=== PATIENT | male | born 1950 | race Hispanic/Latino ===

== ENCOUNTER 2019-12-27 18:38 | Inpatient (IN) | payer MEDICARE, OTHER ==
[~2019-12-27] VITALS: Ht 170.2 cm; Wt 105.4 kg
--- OUTSIDE RECORDS SUMMARY | 2019-12-27 18:41 | XMS REPORT ---
Author Author [facility] Organization [facility] Address Unknown Phone Unavailable Care Team Providers Care Senior Contracts Administrator Name Role Phone Unavailable Unavailable Payers Payer Name Policy Type Policy Number Effective Date Expiration D ate Problems This patient has no known problems. Allergies, Adverse Reactions, Alerts This patient has no known allergies or adverse reactions. Medications This patient has no known medications. Encounters Start Date/Time End Date/Time Encounter Type Admission Type [facility] Care Department Encounter ID 2019-07-10 12:41:00 2019-07-10 12:41:00 Emergency E [id number] Results Test Description Test Time Test Comments Text Results Atomic Results Result Comments - US HEAD AND NECK 2019-04-03 12:22:00 Name: CLAUDIO PAGE [facility] : 1950 Age/S: 68 / M [address] [place] [address] Unit #: [id number] Loc: [place] [address] Phys: Lorna Roldan MD Acct: [id number] Dis Date: Status: REG CLI PHONE #: [phone] Exam Date: 04/03/2019 0939 FAX #: [phone] Reason: E21.3, HYPERPARATHYROIDISM, UNSPECIFIED. EXAMS: CPT CODE: [id number] US HEAD AND NECK 91748 PROCEDURE: THYROID ULTRASOUND INDICATION: Hyperparathyroidism COMPARISON: None. TECHNIQUE: Sonographic evaluation of the thyroid gland is performed using high resolution B-mode and supplemental Doppler imaging. FINDINGS: The right lobe measures 6.1 x 1.9 x 1.7 cm The left lobe measures 5.3 x 1.9 x 2.0 cm The isthmus is normal. There is diffuse heterogeneity. No increased vascularity is noted. Inferomedial right nodule measures 6 mm. Inferior right nodule measures 5 mm. Mid left thyroid nodule measures 1.9 cm. Inferior left thyroid cystic nodule measures 8 mm. Largest Nodule: - Size: 1.9 cm - Location: Mid left - Composition: 2 - Echogenicity: 1 - Shape: Wider than tall - Margin: Ill-defined - Echogenic foci?: Microcalcifications TI-RADS Category: 4, moderately suspicious. FNA recommended. IMPRESSION: 1. Moderately suspicious dominant left thyroid nodule measuring 1.9 cm. FNA recommended. 2. Other smaller subcentimeter bilateral nodules SL: [id number] at 1222 Reported and signed by: Philip Eller M.D. PAGE 1 Signed Report (CONTINUED) Name: CLAUDIO MORTON [facility] : 1950 Age/S: 68 / M [address] [place] [address] Blvd Unit #: [id number] Loc: [place] [address] Phys: Lorna Roldan MD Acct: [id number] Dis Date: Status: REG CLI PHONE #: [phone] Exam Date: 04/03/2019 0939 FAX #: [phone] Reason: E21.3, HYPERPARATHYROIDISM, UNSPECIFIED. EXAMS: CPT CODE: [id number] US HEAD AND NECK 02497 <Continued> CC: Lorna Roldan MD; García John MD Technologist: Contreras Barry RDMS (AB) (OB) Trnscb Date/Time: 04/03/2019 (1222) [email or web address] Orig Print D/T: S: 04/03/2019 (9545) Probe: PAGE 2 Signed Report
[2019-12-27] MEDS ORDERED: ASPIRIN 81 MG CHEW TAB PO ONE ×2 (18:45→19:00)
[2019-12-27] MEDS ORDERED: ENOXAPARIN SODIUM INJ 100 MG/ML SYR SC STA (18:57)
[2019-12-27] MEDS: NITROGLYCERIN 0.4 MG SUBL SL PRN ×2 (19:00→19:23)
[2019-12-27] MEDS ORDERED: NITROGLYCERIN 0.4 MG SUBL ONE (19:00)
--- NOTE | 2019-12-27 19:04 | NUR ---
cp resolved after 1 dose nitro sl. md informed. ordered to hold additional doses of nitro sl, 2 inches nitropaste ordered.
[2019-12-27] MEDS ORDERED: NITROGLYCERIN 2% OINT 1 GM PKT TOP STA (19:05)
[2019-12-27 19:11] LABS: BASOPHILS % 0.1 % (0.0-1.0); EOSINOPHILS # (AUTO) 0.2 (0.0-0.4); EOSINOPHILS % 2.1 % (0.0-6.0); HEMATOCRIT 33.9 % (38.2-49.6); HEMOGLOBIN 11.1 g/dL (14.0-18.0); LYMPHOCYTES # (AUTO) 1.3 (1.0-3.2); LYMPHOCYTES % 17.3 % (18.0-39.1); MEAN CORPUSCULAR HEMOGLOBIN 33.6 pg (28-32); MEAN CORPUSCULAR HGB CONC 32.7 g/dL (31-35); MEAN CORPUSCULAR VOLUME 102.7 fL (81-99); MONOCYTES # (AUTO) 0.9 (0.2-0.8); MONOCYTES % 12.1 % (4.4-11.3); NEUTROPHILS # (AUTO) 4.9 (2.1-6.9); PLATELET COUNT 178 x10e3/uL (140-360); RED CELL DISTRIBUTION WIDTH 13.5 % (11.7-14.4)
[2019-12-27] MEDS ORDERED: NITROGLYCERIN 2% OINT 1 GM PKT ONE (19:12)
[2019-12-27] MEDS ORDERED: ENOXAPARIN SOD INJ 120 MG/0.8 ML SYR SC ONE (19:12)
[2019-12-27 19:15] LABS: INR 0.89; PROTHROMBIN TIME 12.6 seconds (11.9-14.5)
[2019-12-27 19:16] LABS: PARTIAL THROMBOPLASTIN TIME 29.6 seconds (23.8-35.5)
--- NOTE | 2019-12-27 19:23 | NUR ---
pt states htat chest pain returning rated 8/10. md informed. 2nd dose of nitro sl ordered. administered at this time.
[2019-12-27 19:25] LABS: ALANINE AMINOTRANSFERASE 9 IU/L (0-55); ALBUMIN 3.9 g/dL (3.5-5.0); ALKALINE PHOSPHATASE 70 IU/L (40-150); ANION GAP 21.8 mmol/L (8-16); BLOOD UREA NITROGEN 64 mg/dL (7-26); BUN/CREATININE RATIO 7 (6-25); CALCIUM 9.9 mg/dL (8.4-10.2); CARBON DIOXIDE 24 mmol/L (22-29); CHLORIDE 101 mmol/L (98-107); CREATINE KINASE 170 IU/L (30-200); CREATININE, SERUM 8.86 mg/dL (0.72-1.25); EST GLOMERULAR FILTRATION RATE 6 ML/MIN (60-); GLUCOSE 238 mg/dL (74-118); POTASSIUM 4.8 mmol/L (3.5-5.1); SODIUM 142 mmol/L (136-145)
--- NOTE | 2019-12-27 19:28 | NUR ---
pt states that chest pain resolved at this time. informed.
--- NOTE | 2019-12-27 19:38 | Diagnostic Imaging Report ---
EXAMINATION: CHEST SINGLE (PORTABLE) INDICATION: Chest pain COMPARISON: None FINDINGS: AP view TUBES and LINES: None. LUNGS: Lungs are well inflated. Lungs are clear. There is no evidence of pneumonia or pulmonary edema. PLEURA: No pleural effusion or pneumothorax. HEART AND MEDIASTINUM: The heart is moderately enlarged. The pulmonary vasculature is unremarkable. BONES AND SOFT TISSUES: No acute osseous lesion. Sternotomy wires. UPPER ABDOMEN: No free air under the diaphragm. IMPRESSION: Moderate cardiomegaly. No acute thoracic abnormality. Signed by: Philip Pacheco MD on 12/27/2019 7:34 PM
[2019-12-27 19:45] LABS: THYROID STIMULATING HORMONE 0.728 uIU/mL (0.350-4.940)
[2019-12-27] MEDS ORDERED: METOPROLOL TARTRATE INJ 1 MG/ML VIAL IV NR (20:00)
[2019-12-27] MEDS ORDERED: CLOPIDOGREL BISULFATE 75 MG TAB PO STA (20:02)
--- NOTE | 2019-12-27 21:15 | NUR ---
pt complaining of chest pain returning. er dr notified. dr jose luis osuna called per md request. dr osuna spoke to dr vasquez. group home supervisor called to activate clinical laboratory director per er md request.
[2019-12-27] MEDS: ONDANSETRON HCL INJ 2MG/ML 2ML 2 MG/ML VIAL IV PRN (21:25)
[2019-12-27] MEDS: SIMVASTATIN 40 MG TAB PO SCH (21:29)
[2019-12-27] MEDS: MORPHINE SULFATE 2 MG/ML SYR 1ML IV PRN (21:35)
--- NOTE | 2019-12-27 21:35 | NUR ---
bilateral groins shaved c electric neto. pt instructed to remain npo for heart cath.
--- NOTE | 2019-12-27 21:41 | NUR ---
CONSENT FOR CARDIAC CATHERIZATION REVIEWED, ALL AGREED UPON, AND SIGNED BY PATIENT
[2019-12-27] MEDS: FAMOTIDINE 20 MG/2 ML VIAL IV SCH (21:49)
--- NOTE | 2019-12-27 21:58 | NUR ---
DR. Jaquelin JOINER AT PTS BEDSIDE
[2019-12-27] MEDS: METOPROLOL TARTRATE 25 MG TAB PO SCH (22:01)
[2019-12-27] MEDS ORDERED: HEPARIN SOD/SOD CHLORIDE 1,000 ML ONE ×2 (22:12→22:17)
[2019-12-27 22:13] LABS: CREATINE KINASE 152 IU/L (30-200)
[2019-12-27] MEDS ORDERED: MIDAZOLAM HCL 2 MG/2 ML VIAL ONE (22:15)
[2019-12-27] MEDS ORDERED: HEPARIN SOD (PORCINE) 1000 UNIT/ML 30ML ONE (22:15)
[2019-12-27] MEDS ORDERED: FENTANYL CITRATE/PF 100MCG/2 ML INJ ONE (22:16)
[2019-12-27] MEDS ORDERED: IOPAMIDOL 370 MG/ML 200 ML INFUS..BTL INJ ONE (22:17)
[2019-12-27] MEDS ORDERED: LIDOCAINE HCL 2% LOCAL 20 ML VIAL ONE (22:17)
[2019-12-27] MEDS ORDERED: SODIUM CHLORIDE 0.9% 1000ML 1,000 ML ONE (22:25)
[2019-12-27] MEDS ORDERED: NITROGLYCERIN/D5W 200 MCG/ML 0 ML ONE (22:25)
[2019-12-27] MEDS ORDERED: ONDANSETRON HCL INJ 2MG/ML 2ML 2 MG/ML VIAL IV PRN (23:15)
[2019-12-27] MEDS ORDERED: HYDROCODONE/APAP 5MG-325MG TAB PO PRN (23:15)
[2019-12-27 23:45] VITALS: BP_SYST 169; BP_SYST 170; BP_DIAS 65
--- NOTE | 2019-12-27 23:45 | NUR ---
RECEIVED FROM ENSEMBLE MEMBER, AWAKE AND ALERT, NO C/O DISCOMFORT AT THIS TIME
[2019-12-28] VITALS (24 sets, daily range): BP systolic 114–220; BP diastolic 45–87
[2019-12-28] MEDS: HYDRALAZINE HCL 20 MG/ML VIAL ONE ×2 (00:21→02:18)
[2019-12-28] MEDS: MORPHINE SULFATE 2 MG/ML SYR 1ML IV PRN (00:22)
[2019-12-28] MEDS ORDERED: HYDRALAZINE HCL 20 MG/ML VIAL ONE (02:16)
--- NOTE | 2019-12-28 03:00 | Consultation ---
DATE OF CONSULTATION: 12/27/2019 Cardiology Consultation REASON FOR CONSULTATION: Chest pain, dynamic EKG changes with high-risk ACS. HISTORY OF PRESENT ILLNESS: Mr. Valentine is a 69-year-old gentleman with past medical history of hypertension, hypercholesteremia, coronary disease with prior history of 3-vessel CABG in 2016 at the [facility]. He has had 3 previous PCIs in the past and is a vasculopath with known bilateral carotid endarterectomy and some sort of right groin vascular surgery history. He is overall not a very good historian. He maintains that he is on hemodialysis through a left arm fistula amongst other things. He was in usual state of health up until earlier today. He started developing episodic substernal chest pressure tightness, heaviness, severe in nature, similar to his previous myocardial infarction and pain in the past, back in 2016. The pain radiates to his left arm and neck region and taking a couple of steps exacerbates it. He has had ongoing chest pain and discomfort in the emergency room and refractory to medical therapy. His presentation EKG shows sinus rhythm, a nonspecific intraventricular conduction block with diffuse ST depressions in the precordial leads. Due to continuous chest pain discomfort, the ER physician decided that this is a high-risk situation and an emergent technology lab teacher activation was called. He is in the process of being prepped to go to the technology lab teacher for ongoing chest pain discomfort. PAST MEDICAL HISTORY: 1. Hypertension. 2. Hypercholesteremia. 3. End-stage renal disease, on hemodialysis. 4. Morbid obesity. 5. Carotid artery disease with history of bilateral carotid endarterectomy surgery. PAST SURGICAL HISTORY: 1. Three-vessel CABG in 2016. 2. Left arm fistula surgery. 3. Bilateral carotid endarterectomy. FAMILY HISTORY: Mother and father , they had coronary artery disease. SOCIAL HISTORY: He is a current nonsmoker. Denies any current alcohol or illicit drug use. ALLERGIES: NO KNOWN DRUG ALLERGIES. HOME MEDICATIONS: He is unaware of which medications he takes. REVIEW OF SYSTEMS: GENERAL: Positive for fatigue, malaise. Denies any fevers, chills. HEENT: No headaches, visual complaints, sore throat, or stuffy nose. RESPIRATORY: Denies any pleuritic chest pain. Does have shortness of breath. CARDIOVASCULAR: Chest pain as per HPI. GI: Positive for nausea. No vomiting. No bright red blood per rectum, melena, hematemesis. : On hemodialysis and scant urine production. MUSCULOSKELETAL: Has chronic back pains, leg pains, and endorses some claudication symptoms of both legs. ENDOCRINE: Denies any heat or cold intolerance. NEUROLOGIC: Denies any focal weakness, numbness, tingling, seizures, headache, TIA or stroke. Remainder review of systems negative otherwise mentioned. PHYSICAL EXAMINATION: VITAL SIGNS: Height of 67 inches, weight of 231 pounds, BMI is 36.2, temperature of 98.4, pulse 79, respiratory rate of 16, blood pressure 170/65, 99% on 2 L nasal cannula. GENERAL: This is an obese gentleman in bed, who is in mild distress due to ongoing pain. HEENT: Normocephalic and atraumatic. Pupils are equally round and reactive to light. Extraocular movements are intact. Oropharynx is clear. NECK: There are bilateral carotid endarterectomy scars. There is some slight fullness in the left upper neck region. CARDIOVASCULAR: There is a stigma of old sternotomy scar. Regular rate and rhythm. Normal S1, S2. 3/6 systolic ejection murmur at the right upper sternal border. LUNGS: Show poor air flow throughout lung mahajan and diminished air entry. Some bibasilar crackles. ABDOMEN: Soft, nontender, obese with normoactive active bowel sounds. No hepatosplenomegaly. BACK: No costovertebral angle tenderness. EXTREMITIES: Warm with noteworthy left brachial AV fistula that is patent and right groin site has some scar over the right femoral artery. There is a palpable thrill in the left groin and 1+ pulse, this is on the right groin. On the left groin, there is a 1 to 2+ pulse. There were absent pedal pulses. There are old vein graft harvest scars. NEUROLOGIC: Cranial nerves II through XII are grossly intact. Strength is seemingly preserved and he is nonfocal. PSYCH: Normal fluent speech. Appropriate affect. No anxiety or delusions. LABORATORY DATA: White count of 7.2, hemoglobin of 11.1, hematocrit 33.9, and platelets of 178. Sodium 142, potassium 4.8, chloride 101, bicarb 24, BUN 64, creatinine 8.86, glucose of 238, calcium of 9.9. AST 14, ALT 9, alkaline phosphatase 78, total protein of 7.8, albumin of 3.9, TSH is 0.728. INR 0.9. D-dimer is 544. Coronavirus screen is pending. Chest x-ray reveals cardiomegaly and an old sternotomy scar. EKG reveals sinus rhythm, left axis deviation, nonspecific intraventricular conduction block, and diffuse ST-segment depressions in the precordial leads. DIAGNOSES: 1. Coronary artery disease with bypass graft with unstable angina, likely early [id number]-[id number] myocardial infarction. 2. End-stage renal disease, on hemodialysis. 3. Hypertension. 4. Hypercholesteremia. 5. Type 2 diabetes. 6. Peripheral vascular disease. 7. Carotid artery disease with prior history of bilateral carotid endarterectomy. PLAN/RECOMMENDATIONS: 1. From a cardiovascular standpoint due to his ongoing chest pain symptoms and inability to control his pain, emergency room physician has activated the catheterization lab and was taken emergently and is en route to the technology lab teacher as we speak. 2. The patient has received Plavix 600 mg load as well as aspirin, statin therapy. 3. We will titrate beta ruben therapy. Continue cholesterol medication. 4. Further plan/recommendations to follow after the catheterization, will need to go to the ICU postprocedure. MD TATIANA Easton/KUSHAL /[id number]
--- NOTE | 2019-12-28 03:09 | NUR ---
PATIENT C/O BEING UNABLE TO VOID, STATES HE FEELS FULL OF URINE. REMAINS ON BEDREST FOLLOWING CARDIAC CATH, CATHETER INSERTED AND WILL LEAVE UNTIL PATIENT ABLE TO MOBILIZE FOLLOWING PROCEDURE
--- NOTE | 2019-12-28 05:21 | Operative Report ---
DATE OF PROCEDURE: 12/27/2019 SURGEON: Juju Cook MD CARDIAC CATHETERIZATION PROCEDURES PERFORMED: 1. Left heart cardiac catheterization for angiography. 2. Left ventriculography. 3. Bypass graft angiography. MOTION PICTURE COMMENTATOR: INDICATION FOR PROCEDURE: Mr. Valentine is a 69-year-old gentleman with past medical history of hypertension, type 2 diabetes, hypercholesteremia, morbid obesity, end-stage renal disease on dialysis, CAD with prior history of CABG in 2016 and has had a previous myocardial infarction. The patient presents to this institution with chest pain symptoms and EKG changes concerning for ongoing ischemia, so it was done in an urgent to emergent fashion. DESCRIPTION OF PROCEDURE: After risks, benefits, pros and cons to this procedure were explained, the patient agreed to proceed. The patient was brought to the cardiac catheterization laboratory. Both groins were prepped and draped in usual sterile fashion. Groin already had a previous scar from a previous access site complication by another occlusion. I would like to proceed on the left groin approach. The left groin was prepped and draped in usual sterile fashion. A 1% lidocaine solution was used to numb the left groin and access of the left femoral artery was obtained utilizing ultrasound guidance, and a short 4-Russian left femoral sheath was placed. Selective coronary angiography of the [place] left and right coronary artery was performed from JL4 and 3DRC diagnostic catheter. The 3DRC diagnostic catheter was able to the saphenous vein graft to the right PDA quite nicely. This catheter was not able to engage the other vein graft. At that point in time, we took an exchange Carson wire insular stent for a 4-Russian IM catheter and performed a VERAS to LAD angiography. Next, we switched out for a 4-Russian LCB graft and performed angiography of the vein graft to the OM. Finally, we took an angled pigtail catheter placed in the ventricle for ventriculography and hemodynamic assessment of ventricular filling pressures. Overall coronary anatomy revealed largely severe 3-vessel disease with 2-3 bypass grafts patent. There were no targets for revascularization. At that point in time, it is unclear of the case. At that point in time, femoral angiogram was performed revealing femoral artery stick and a sheath was upsized to a 5-Russian sheath. A 5-Russian Mynx device successfully deployed achieving hemostasis. COMPLICATIONS: None. ESTIMATED BLOOD LOSS: 1. None. FINDINGS: 1. Left main is patent with mild diffuse disease, gives rise to LAD and circumflex branch. 2. LAD has 80% to 98% ostial stenosis. This faintly fills a 1st diagonal branch. The mid LAD has a grafted VERAS that is widely patent. The remainder of the LAD with just mild diffuse disease. 3. The ostial circumflex artery has a 50% calcified stenosis. This vessel gives rise to 2 moderate mid marginal branches in a smaller 3rd marginal branch. The mid to distal circumflex artery is occluded. The last branch, which is a posterior lateral marginal branch is seen filled from right to left . 4. The RCA is dominant, gives rise to right PDA and right PLV branch. There is a 50% ostial right stenosis followed by 70% mid RCA stenosis followed by 100% mid to distal RCA stenosis. The distal RCA territory is seen filled via vein graft plugged in to the right PDA and backfills the remainder of the RCA system. 5. Left ventricular ejection fraction is 40% to 45% inferobasal hypokinesis noted. Bypass graft angiography: 1. VERAS to LAD is patent. 2. Saphenous vein graft to the marginal branch is 100% occluded ostially, this is chronically occluded. 3. Saphenous vein graft to the right PDA . PLAN/RECOMMENDATIONS: 1. Overall from a cardiovascular standpoint, the patient has severe 3-vessel [place] CAD with 2-3 bypass grafts patent, revascularizing the LAD or RCA territory. There is an ostial circumflex artery stenosis that is moderate in nature and does not appear to be hemodynamically severe. Looking at the other vascular territories, there are certainly watershed zones, which can produce ischemia, but again there are no clear-cut targets for revascularization percutaneous. 2. Repeat enzyme came back during our catheterization and this was noted to be negative. 3. Aggressive risk factor modification and medical therapy. MD TATIANA Easton/KUSHAL /[id number]
[2019-12-28 05:22] LABS: BASOPHILS % 0.3 % (0.0-1.0); EOSINOPHILS # (AUTO) 0.1 (0.0-0.4); HEMATOCRIT 35.2 % (38.2-49.6); HEMOGLOBIN 11.1 g/dL (14.0-18.0); LYMPHOCYTES # (AUTO) 0.9 (1.0-3.2); LYMPHOCYTES % 11.7 % (18.0-39.1); MEAN CORPUSCULAR HEMOGLOBIN 32.6 pg (28-32); MEAN CORPUSCULAR HGB CONC 31.5 g/dL (31-35); MEAN CORPUSCULAR VOLUME 103.2 fL (81-99); MONOCYTES # (AUTO) 0.7 (0.2-0.8); MONOCYTES % 9.1 % (4.4-11.3); NEUTROPHILS # (AUTO) 6.2 (2.1-6.9); NEUTROPHILS % 77.4 % (38.7-80.0); PLATELET COUNT 175 x10e3/uL (140-360); RED BLOOD COUNT 3.41 x10e6/uL (4.3-5.7); RED CELL DISTRIBUTION WIDTH 13.6 % (11.7-14.4)
[2019-12-28 05:53] LABS: ALBUMIN 3.8 g/dL (3.5-5.0); ALBUMIN/GLOBULIN RATIO 1.1 (0.8-2.0); ANION GAP 19.9 mmol/L (8-16); CALCIUM 9.6 mg/dL (8.4-10.2); CREATININE, SERUM 9.32 mg/dL (0.72-1.25); POTASSIUM 4.9 mmol/L (3.5-5.1)
[2019-12-28 06:15] LABS: CHOL/HDL RATIO 2.9 (3.9-4.7)
[2019-12-28] MEDS: NITROGLYCERIN 2% OINT 1 GM PKT TOP SCH ×3 (06:30→12:16)
[2019-12-28 06:47] LABS: CREATINE KINASE MB 6.1 ng/mL (0-5.0)
[2019-12-28] MEDS: ONDANSETRON HCL INJ 2MG/ML 2ML 2 MG/ML VIAL IV PRN (07:07)
[2019-12-28] MEDS: FAMOTIDINE 20 MG/2 ML VIAL IV SCH (07:23)
--- NOTE | 2019-12-28 07:24 | NUR ---
PEPCID GIVEN EARLY. PATIENT C/O HEARTBURN.
[2019-12-28] MEDS ORDERED: ENOXAPARIN SODIUM INJ 100 MG/ML SYR SC SCH (07:30)
[2019-12-28] MEDS ORDERED: HYDRALAZINE HCL 20 MG/ML VIAL IV PRN ×2 (08:00→12:45)
--- NOTE | 2019-12-28 08:08 | NUR ---
BP elevated to 215/82. notified Dr Cook and medication orders received.
[2019-12-28] MEDS: METOPROLOL TARTRATE 25 MG TAB PO SCH ×2 (08:17→20:36)
[2019-12-28] MEDS: CLOPIDOGREL BISULFATE 75 MG TAB PO SCH (10:14)
[2019-12-28] MEDS: HYDRALAZINE HCL 25 MG TAB PO SCH ×2 (11:07→20:36)
[2019-12-28] MEDS: NIFEDIPINE CR 30 MG TAB PO SCH ×2 (11:08→16:17)
[2019-12-28 12:48] LABS: CREATINE KINASE MB 7.1 ng/mL (0-5.0)
[2019-12-28] MEDS ORDERED: NITROGLYCERIN/D5W 200 MCG/ML 250 ML IV PRN (13:00)
[2019-12-28] MEDS ORDERED: METOCLOPRAMIDE HCL 10 MG/2ML VIAL IV ONE (13:30)
[2019-12-28] MEDS: METOCLOPRAMIDE HCL 10 MG TAB PO SCH ×2 (16:16→20:36)
[2019-12-28] MEDS: LISINOPRIL 10 MG TAB PO SCH (16:17)
[2019-12-28] MEDS ORDERED: PROMETHAZINE 12.5MG/ NACL 0.9% 12.5 MG/50 ML BAG IV PRN (16:45)
[2019-12-28] MEDS: INSULIN LISPRO 100 UNIT/1 ML 3ML VIAL SQ SCH ×2 (17:14→20:30)
--- NOTE | 2019-12-28 17:28 | Diagnostic Imaging Report ---
Exam: Abdominal film Clinical History: Vomiting Comparison: None. DISCUSSION: The bowel gas pattern shows no dilated, air-filled loops of small bowel. Gas is noted throughout the small and large bowel, as well as gaseous distention of the stomach. No jameson pneumoperitoneum. No mass effect or organomegaly. Degenerative changes of the visualized lumbar spine with otherwise intact regional skeletal structures. Atherosclerotic vascular calcifications. IMPRESSION: Nonobstructive bowel gas pattern. Gaseous distention of the small and large bowel likely reflects ileus in the setting of vomiting. Signed by: Dr. Nabeel Lino M.D. on 12/28/2019 5:25 PM
--- NOTE | 2019-12-28 19:28 | Consultation ---
DATE OF CONSULTATION: Initial Nephrology Consultation Report REASON FOR CONSULTATION: End-stage renal disease and kidney failure. HISTORY OF PRESENT ILLNESS: Mr. Valentine is a 69-year-old gentleman with a past medical history of chronic kidney disease stage 5, hyperlipidemia, diabetes, hypertension, and coronary artery disease. He has had DC in the past also. The patient presented to the hospital yesterday because he was having some chest pain, therefore coronary angiography was done. The patient underwent catheterization, however, he did not need any type of angioplasty or any intervention. The patient at the present time does have some nausea. PAST MEDICAL HISTORY: The patient has a history of: 1. Diabetes. 2. Hypertension. 3. Hyperlipidemia. 4. End-stage renal disease. He has been on dialysis since September of 2015. 5. Coronary artery disease. PAST SURGICAL HISTORY: He underwent coronary artery bypass graft surgery in 2016. MEDICATIONS: Right now, the patient's medicine list consists of nitroglycerin, nifedipine, hydralazine, Plavix, metoprolol, Pepcid, Zofran, morphine, Zocor, aspirin, and [place]. PHYSICAL EXAMINATION: VITAL SIGNS: Initially, blood pressure was about 215/92. GENERAL: The patient is obese. He is having some nausea. He states he does not feel well. CARDIOVASCULAR: Regular rate and rhythm. LUNGS: Clear to auscultation. ABDOMEN: Obese. EXTREMITIES: No edema. The patient has AV fistula in the left arm. LABORATORY RESULTS: Hematocrit is 35 and hemoglobin 11. Sodium 144, potassium 4.9, chloride 104, bicarbonate 25, BUN and creatinine 68 and 9.3. Chest x-ray shows no pulmonary congestion. IMPRESSION/PLAN: 1. Chronic kidney disease, stage 5. 2. Acute coronary syndrome. 3. Diabetes. 4. Hypertension. 5. Uncontrolled hypertension, accelerated hypertension. PLAN: The patient at the present time does not need urgent dialysis. His volume status is okay. His electrolytes are okay. He does have a little bit of nausea, but this could be from the procedure and also he does have a very high blood pressure, and I think the main focus for today needs to be to control his blood pressure. We will get him dialyzed first thing in the morning. There is no indication for acute dialysis at this time. Thank you for this consultation. Ather MD CLEMENTE Richards/KUSHAL /[id number]
[2019-12-28] MEDS: SIMVASTATIN 40 MG TAB PO SCH (20:36)
[2019-12-29] VITALS (17 sets, daily range): BP systolic 108–171; BP diastolic 46–91
[2019-12-29 05:41] LABS: BASOPHILS % 0.3 % (0.0-1.0); EOSINOPHILS # (AUTO) 0.2 (0.0-0.4); EOSINOPHILS % 2.3 % (0.0-6.0); HEMATOCRIT 32.5 % (38.2-49.6); HEMOGLOBIN 10.3 g/dL (14.0-18.0); LYMPHOCYTES # (AUTO) 1.3 (1.0-3.2); LYMPHOCYTES % 18.6 % (18.0-39.1); MEAN CORPUSCULAR HGB CONC 31.7 g/dL (31-35); MEAN CORPUSCULAR VOLUME 104.2 fL (81-99); MONOCYTES # (AUTO) 0.9 (0.2-0.8); MONOCYTES % 12.6 % (4.4-11.3); NEUTROPHILS # (AUTO) 4.5 (2.1-6.9); NEUTROPHILS % 65.9 % (38.7-80.0); PLATELET COUNT 166 x10e3/uL (140-360); RED BLOOD COUNT 3.12 x10e6/uL (4.3-5.7); RED CELL DISTRIBUTION WIDTH 13.5 % (11.7-14.4)
[2019-12-29 06:22] LABS: ALBUMIN 3.2 g/dL (3.5-5.0); ANION GAP 18.9 mmol/L (8-16); CALCIUM 9.1 mg/dL (8.4-10.2); CREATININE, SERUM 10.34 mg/dL (0.72-1.25); POTASSIUM 4.9 mmol/L (3.5-5.1)
[2019-12-29 06:34] LABS: THYROID STIMULATING HORMONE 0.569 uIU/mL (0.350-4.940)
[2019-12-29] MEDS: INSULIN LISPRO 100 UNIT/1 ML 3ML VIAL SQ SCH ×4 (07:30→21:45)
[2019-12-29] MEDS: METOPROLOL TARTRATE 25 MG TAB PO SCH ×2 (08:45→21:43)
[2019-12-29] MEDS: CLOPIDOGREL BISULFATE 75 MG TAB PO SCH (08:54)
[2019-12-29] MEDS: METOCLOPRAMIDE HCL 10 MG TAB PO SCH ×4 (08:54→21:43)
[2019-12-29] MEDS: ASPIRIN 81 MG ENTERIC COATED PO SCH (08:54)
[2019-12-29] MEDS: HYDRALAZINE HCL 25 MG TAB PO SCH ×3 (08:55→21:43)
[2019-12-29] MEDS: LISINOPRIL 10 MG TAB PO SCH ×2 (08:55→21:43)
[2019-12-29] MEDS: NIFEDIPINE CR 30 MG TAB PO SCH ×2 (08:55→21:43)
--- NOTE | 2019-12-29 21:30 | NUR ---
HD COMPLETE, 2L REMOVED
[2019-12-29] MEDS: SIMVASTATIN 40 MG TAB PO SCH (21:43)
[2019-12-30 05:00] VITALS: BP 164/56
[2019-12-30] MEDS: INSULIN LISPRO 100 UNIT/1 ML 3ML VIAL SQ SCH ×2 (07:30→11:47)
[2019-12-30 07:58] VITALS: BP 141/59
[2019-12-30] MEDS: METOPROLOL TARTRATE 25 MG TAB PO SCH (08:10)
[2019-12-30] MEDS: METOCLOPRAMIDE HCL 10 MG TAB PO SCH ×2 (08:10→11:42)
[2019-12-30] MEDS: HYDRALAZINE HCL 25 MG TAB PO SCH (08:10)
[2019-12-30] MEDS: CLOPIDOGREL BISULFATE 75 MG TAB PO SCH (08:10)
[2019-12-30] MEDS: ASPIRIN 81 MG ENTERIC COATED PO SCH (08:10)
[2019-12-30] MEDS: NIFEDIPINE CR 30 MG TAB PO SCH (08:10)
[2019-12-30] MEDS: LISINOPRIL 10 MG TAB PO SCH (08:10)
[2019-12-30 09:25] VITALS: BP 141/59
[2019-12-30 11:35] VITALS: BP 135/51
--- NOTE | 2019-12-30 22:42 | Discharge Summary ---
PRIMARY CARE DOCTOR: Unknown. FINAL DIAGNOSIS: Hqz-ZX-cdjnubecs myocardial infarction. SECONDARY DIAGNOSES: 1. Hypertensive crisis, resolved. 2. Ileus, resolved. 3. End-stage renal disease due to diabetes. CONSULTANTS: 1. Dr. Cook. 2. Nephrology, Dr. Lamas. PROCEDURE/STUDIES PERFORMED: Left heart catheterization. HISTORY: Per H and P. HOSPITAL COURSE: The patient underwent left heart catheterization. Medical management only. His troponin peaked at 1.754, not coming down. Hypertensive crisis resolved. Ileus resolved as well. The patient was dialyzed. The patient was seen and examined today. CONDITION ON DISCHARGE: Improved. DISCHARGE MEDICATIONS: Please see medication reconciliation form. MD CHELSEA Gould/KUSHAL /[id number]
== END 2019-12-30 14:00 | disposition home or self-care (01) | DRG 280 ==
LOC: ER 18:38 → ERHOLD 20:59 → ICU 23:41
PROVIDERS: ADMIT Internal Medicine; ATTEND Internal Medicine
PROC: 4A023N7 Measurement of Cardiac Sampling and Pressure, Left Heart, Percutaneous Approach (ICD-10-PCS; principal; 2019-12-27)
PROC: B2111ZZ Fluoroscopy of Multiple Coronary Arteries using Low Osmolar Contrast (ICD-10-PCS; 2019-12-27)
PROC: B2151ZZ Fluoroscopy of Left Heart using Low Osmolar Contrast (ICD-10-PCS; 2019-12-27)
PROC: B2131ZZ Fluoroscopy of Multiple Coronary Artery Bypass Grafts using Low Osmolar Contrast (ICD-10-PCS; 2019-12-27)
PROC: 5A1D70Z Performance of Urinary Filtration, Intermittent, Less than 6 Hours Per Day (ICD-10-PCS; 2019-12-29)
DX: I21.4 Non-ST elevation (NSTEMI) myocardial infarction (principal); N18.6 End stage renal disease; I12.0 Hypertensive chronic kidney disease with stage 5 chronic kidney disease or end stage renal disease; K56.7 Ileus, unspecified; E78.00 Pure hypercholesterolemia, unspecified; I24.9 Acute ischemic heart disease, unspecified; E11.22 Type 2 diabetes mellitus with diabetic chronic kidney disease; Z99.2 Dependence on renal dialysis; Z95.1 Presence of aortocoronary bypass graft; Z68.36 Body mass index [BMI] 36.0-36.9, adult; I25.2 Old myocardial infarction; E66.01 Morbid (severe) obesity due to excess calories; I25.700 Atherosclerosis of coronary artery bypass graft(s), unspecified, with unstable angina pectoris; Z79.4 Long term (current) use of insulin
CPT/HCPCS: 36415; 71045; 74018; 80053; 80061; 82550; 82553; 82948; 83690; 83880; 84443; 84484; 85025; 85379; 85610; 85730; 86705; 86706; 87340; 87635; 93005; 93306; 93459; 99152; 99153; 99285; C1760; C1766; C1769; J0360; J1644; J1650; J2001; J2250; J2270; J2405; J2765; J3010; J7030; Q9967